=== PATIENT | female | born 1985 | race Caucasian/White ===

== ENCOUNTER 2022-01-10 03:20 | Emergency (ER) | payer OTHER ==
[~2022-01-10] VITALS: Ht 154.9 cm; Wt 55.3 kg
[2022-01-10] MEDS ORDERED: ELIQUIS5 MG (03:45)
[2022-01-10] MEDS ORDERED: PERCOCET 5-3251 EACH PO (06:05)
== END 2022-01-10 06:15 | disposition home or self-care (01) ==
LOC: ER 03:20
DX: R10.31 Right lower quadrant pain (principal); N13.9 Obstructive and reflux uropathy, unspecified

== ENCOUNTER 2022-12-28 10:16 | Outpatient (CLI) | payer OTHER ==
[~2022-12-28 10:16] MED LIST: ELIQUIS5 MG; PERCOCET 5-3251 EACH PO
== END 2022-12-28 10:28 | disposition home or self-care (01) ==
LOC: TOM 10:16
DX: C67.9 Malignant neoplasm of bladder, unspecified (principal)

== ENCOUNTER 2023-01-01 10:54 | Inpatient (IN) | payer OTHER ==
[~2023-01-01] VITALS: Ht 157.5 cm; Wt 116.6 kg
[2023-01-01] MEDS ORDERED: EXEMESTANE25 MG PO (11:55)
== END 2023-01-09 17:07 | disposition home or self-care (01) | DRG 872 ==
LOC: ER 10:54 → SURH 01-02 00:13
PROVIDERS: ADMIT Urology; ATTEND Urology
PROC: BW21ZZZ Computerized Tomography (CT Scan) of Abdomen and Pelvis (ICD-10-PCS; principal; 2023-01-01)
PROC: B246ZZZ Ultrasonography of Right and Left Heart (ICD-10-PCS; 2023-01-02)
PROC: 30233N1 Transfusion of Nonautologous Red Blood Cells into Peripheral Vein, Percutaneous Approach (ICD-10-PCS; 2023-01-03)
DX: A41.89 Other specified sepsis (principal); N30.00 Acute cystitis without hematuria; C56.1 Malignant neoplasm of right ovary; D64.89 Other specified anemias; K29.70 Gastritis, unspecified, without bleeding; B96.1 Klebsiella pneumoniae [K. pneumoniae] as the cause of diseases classified elsewhere; R19.00 Intra-abdominal and pelvic swelling, mass and lump, unspecified site; R00.1 Bradycardia, unspecified; T80.89XA Other complications following infusion, transfusion and therapeutic injection, initial encounter; Y84.8 Other medical procedures as the cause of abnormal reaction of the patient, or of later complication, without mention of misadventure at the time of the procedure; Y92.230 Patient room in hospital as the place of occurrence of the external cause; Z20.822 Contact with and (suspected) exposure to COVID-19